=== PATIENT | male | born 1955 | race Caucasian/White ===

== ENCOUNTER → 2023-05-05 | Outpatient (CLI) | payer MEDICARE, MEDICAID, SELFPAY ==
[2023-05-05 08:09] LABS: Allen Test Positive; Base Excess 9 mmol/L (-2 to +2); Bicarbonate 33.1 mmol/L (22-26); Blood Gas Specimen Type ART; Mode Not entered; O2 Delivery Device Room Air; PO2 69 mmHG (75-100); SITE R Radial; SO2 94 % (95-99); Total Carbon Dioxide 35 mmol/L; pH 7.47 (7.35-7.45)
== END | disposition home or self-care (01) ==
PROVIDERS: PCP Family Medicine; Referring Provider Internal Medicine Pulmonary Disease; Visit Provider Internal Medicine Pulmonary Disease
DX: R06.02 Shortness of breath (principal)
CPT/HCPCS: 36600; 82803

== ENCOUNTER → 2023-05-12 | Outpatient (CLI) | payer MEDICARE, MEDICAID, SELFPAY ==
--- NOTE | 2023-05-12 17:40 | CT_ITS ---
EXAM: CT CHEST WITHOUT INTRAVENOUS CONTRAST CLINICAL INDICATION: SOB TECHNIQUE: Helically acquired images were obtained of the chest without intravenous contrast. This CT exam was performed using one or more of the following dose reduction techniques: automated exposure control, adjustment of the mA and/or kV according to patient size, and/or use of iterative reconstruction technique. RADIATION DOSE: CTDIvol = 20.15 mGy, DLP = 714.93 mGy-cm COMPARISON: No relevant prior studies available. FINDINGS: LUNGS AND PLEURAL SPACES: 1.5 mm subpleural nodule in the lateral and lower anterior segment of the right upper lobe (series 4, image 52; series 602, image 96; series 601, image 75). In my opinion, there may be a tiny central calcification in the axial view but I am unable to confirm the tiny central calcification in the coronal and sagittal reconstructions. Multiple bilateral calcified bronchial mendez. Curvilinear subsegmental atelectases in the left posterior lung base. No pneumothorax. No other suspicious pulmonary nodules and no suspicious infiltrates in both lungs. HEART: Cardiomegaly. Extensive calcified plaques in the left main coronary artery bifurcation, LAD branch, circumflex branch and right coronary artery. Normal pericardium. MEDIASTINUM: Unremarkable. No mediastinal or hilar adenopathy. Esophagus is unremarkable. No hiatal hernia. THYROID: Unremarkable. No thyroid lesions. BONES/JOINTS: Unremarkable. No suspicious lytic or blastic abnormality. VASCULATURE: Scattered calcified plaques in the transverse thoracic aorta and descending thoracic aorta. Thoracic aorta is non-dilated. CT/Chest without Contrast IMPRESSION: 1. No acute cardiopulmonary pathology. 2. 1.5 mm subpleural nodule in the lower lateral anterior segment of the right upper lobe (series 4, image 52; series 602, image 96; series 601, image 75). There may be a tiny central calcification in the axial view but I am unable to confirm the tiny central calcification in the coronal and sagittal reconstructions. Fleischner Society Guidelines (MacMahon, et al. Radiology 2017; 284(1):228-43) suggest the following. For low-risk or high-risk patients consider chest CT at 12 months due to the morphology and/or location of this nodule. 3. Extensive calcified plaques in all 3 vessel coronary arteries and cardiomegaly. 4. Small scattered calcified plaques in the transverse thoracic aorta and descending thoracic aorta. No thoracic aortic aneurysm. 5. Bilateral central and peripheral bronchial wall calcifications without airspace disease in both lungs. 6. Minimal subsegmental atelectasis in the left posterior medial lung base. Electronically Signed: Jose Alberto Arnett MD at 12:36 EST ,
== END | disposition home or self-care (01) ==
LOC: CT 17:36
PROVIDERS: PCP Family Medicine; Referring Provider Internal Medicine Pulmonary Disease; Visit Provider Internal Medicine Pulmonary Disease
DX: R06.02 Shortness of breath (principal)
CPT/HCPCS: 71250